=== PATIENT | male | born 1930 | race Caucasian/White ===

== ENCOUNTER 2016-10-27 22:54 | Emergency (ER) | payer MEDICARE, OTHER ==
[~2016-10-27] VITALS: Ht 172.7 cm; Wt 72.5 kg
[2016-10-27 23:02] VITALS: BP 133/86; PULSE 77; RESP 18; TEMP 98.4; O2SAT 99
--- NOTE | 2016-10-27 23:41 | PD ---
HPI Chief Complaint: Injury Time Seen by Provider: 23:36 Travel History International Travel<30 days: No Contact w/Intl Traveler<30days: No Traveled to known affect area: No History of Present Illness HPI The patient is an 86-year-old male that had about 10 PM tonight was going down a ramp and caught his right foot. He complains of a laceration underneath the right third toe and third toe pain and some slight foot pain. His last tetanus shot was over 10 years ago. [facility] Past Medical History Autoimmune Disease: No Cardiovascular Problems: Yes Social History Tobacco Use: No Allergies-Medications (Allergen,Severity, Reaction): Coded Allergies: No Known Allergies (Verified , 10/27/16) Reported Meds & Prescriptions Reported Meds & Active Scripts Active Reported Aspirin 81 Mg Chew 81 Mg CHEW DAILY Plavix (Clopidogrel Bisulfate) 75 Mg Tab 75 Mg PO DAILY Welchol (Colesevelam HCl) 3.75 Gm Pkt 3.75 Gm PO DAILY Metoprolol Tartrate 25 Mg Tab 25 Mg PO DAILY Review of Systems Except as stated in HPI: all other systems reviewed are Neg Physical Exam Narrative GENERAL: The patient is alert, oriented 3 and slight apparent distress with his right foot/right third toe pain. His vital signs are normal. SKIN: Focused skin assessment warm/dry. There is a laceration toe, plantar surface at the flexor crease between the proximal phalanges and the third metatarsal. HEAD: Atraumatic. Normocephalic. EYES: Pupils equal and round. No scleral icterus. No injection or drainage. ENT: No nasal bleeding or discharge. Mucous membranes pink and moist. NECK: Trachea midline. No JVD. CARDIOVASCULAR: Regular rate and rhythm. No murmur appreciated. RESPIRATORY: No accessory muscle use. Clear to auscultation. Breath sounds equal bilaterally. GASTROINTESTINAL: Abdomen soft, non-tender, nondistended. Hepatic and splenic margins not palpable. MUSCULOSKELETAL: No obvious deformities. No clubbing. No cyanosis. No edema. NEUROLOGICAL: Awake and alert. No obvious cranial nerve deficits. Motor grossly within normal limits. Normal speech. PSYCHIATRIC: Appropriate mood and affect; insight and judgment normal. Data Data Last Documented VS Vital Signs Date Time Temp Pulse Resp B/P Pulse Ox O2 Delivery O2 Flow Rate FiO2 10/27/16 23:25 18 99 Room Air 10/27/16 23:02 98.4 77 133/86 Orders Toe (Min 2vws) (10/27/16 23:36) Foot, Complete ([id number]) (10/27/16 23:37) Wound Care (10/28/16 01:50) Tetanus/Diphtheria Tox Adult (Tetanus/Di (10/28/16 02:00) MDM Medical Decision Making Medical Screen Exam Complete: Yes Emergency Medical Condition: Yes Medical Record Reviewed: Yes Interpretation(s) The right foot, third toe shows periosteal reaction about the mid shaft of the third metatarsal which is likely an old stress related injury but no acute osseous findings. The right foot shows no evidence of recent bone injury, there is evidence of prior bony injury to the third and fifth metatarsals. Differential Diagnosis Laceration right toesuturable laceration right toe not suturable, fracture foot , fracture toeright third Narrative Course The patient has a laceration of the right foot which is not suturable. Suturing this toe would likely increase the chances of infection which are high to begin with. He needs to soak the toe twice daily to keep it clean and keep the toe bandaged. Diagnosis Primary Impression: Laceration of toe of right foot Additional Impression: Contusion of right foot Additional Instructions: The antibiotic is one tablet twice daily for 7 days. He needs to soak his foot twice daily to keep the laceration clean. If problems, return to emergency department or follow-up with a automobile upholstery trim installer or his primary care physician. Med/Other Pt SpecificInfo: Prescription(s) given Scripts Sulfamethoxazole-Trimethoprim (Bactrim DS)800-160 Mg Tab1 Tab PO BID #20 TAB Ref 0 Prov:Eitan Mcginnis MD 10/28/16 Disposition: 01 DISCHARGE HOME Condition: Stable Eitan Mcginnis MD Oct 27, 2016 23:41
[2016-10-28] MEDS ORDERED: COLE1PAK PO (00:28)
[2016-10-28] MEDS ORDERED: METO25TA3 PO (00:28)
[2016-10-28] MEDS ORDERED: PLAV75TA29 PO (00:28)
[2016-10-28] MEDS ORDERED: ASPI81CH CHEW (00:28)
--- NOTE | 2016-10-28 00:42 | RADRPT ---
EXAM DATE/TIME: 10/27/2016 23:45 [facility] COMPARISON: No previous studies available for comparison. INDICATIONS : Right foot pain and laceration to third digit after fall. MEDICAL HISTORY : None. SURGICAL HISTORY : None. ENCOUNTER: Initial ACUITY: 1 day PAIN SCORE: 8/10 LOCATION: Right foot FINDINGS: Bone density is mildly decreased. The osseous structures are normal alignment. There is evidence of periosteal reaction concentric about the mid shaft of the 3rd metatarsal bone. There is an oblique lucency through the midshaft of the 5th metatarsal suggesting an old healed fracture. No evidence of acute bony injury. No radiopaque foreign bodies. Mild dorsal soft tissue swelling. CONCLUSION: No evidence of recent bone injury. Evidence of prior bony injury to the 3rd and 5th metatarsals. Barrie Nash MD on October 28, 2016 at 0:39 Board Certified Radiologist. This report was verified electronically.
--- NOTE | 2016-10-28 00:43 | RADRPT ---
EXAM DATE/TIME: 10/27/2016 23:45 [facility] COMPARISON: No previous studies available for comparison. INDICATIONS : Right foot pain and laceration to third digit after fall. MEDICAL HISTORY : None. SURGICAL HISTORY : None. ENCOUNTER: Initial ACUITY: 1 day PAIN SCORE: 8/10 LOCATION: Right foot, third digit FINDINGS: Examination of the third digit of the right foot demonstrates no evidence of fracture or dislocation. No radiopaque foreign bodies are seen. There is periosteal thickening mid shaft of the 3rd metatar anusha bone. There is mild soft tissue thickening dorsal to the midfoot.. CONCLUSION: Periosteal reaction about the mid shaft of the 3rd metatarsal may represent old stress related injury . No acute osseous findings. Barrie Nash MD on October 28, 2016 at 0:41 Board Certified Radiologist. This report was verified electronically.
[2016-10-28] MEDS ORDERED: BACT800T5 PO (01:59)
[2016-10-28] MEDS ORDERED: TETANUS/DIPHTHERIA TOXOID ADULT 0.5 ML VIAL IM ONE (02:00)
== END 2016-10-28 02:18 | disposition home or self-care (01) ==
LOC: PHED 22:54
DX: S91.114A Laceration without foreign body of right lesser toe(s) without damage to nail, initial encounter (principal); S90.31XA Contusion of right foot, initial encounter; Z79.82 Long term (current) use of aspirin; Z79.02 Long term (current) use of antithrombotics/antiplatelets; W45.8XXA Other foreign body or object entering through skin, initial encounter
CPT/HCPCS: 73630; 73660; 90471; 90714